=== PATIENT | female | born 1995 | race Caucasian/White ===

== ENCOUNTER 2016-03-15 18:05 | Emergency (ER) | payer BC ==
[~2016-03-15] VITALS: Ht 162.6 cm; Wt 76.6 kg
[2016-03-15] MEDS ORDERED: BENADRYL50 MG PO (21:03)
[2016-03-15] MEDS ORDERED: PREDNISONE10 MG PO (21:03)
[2016-03-15] MEDS ORDERED: PEPCID20 MG PO (21:03)
[2016-03-15] MEDS ORDERED: MOMETASONE FURO17 GM BOTH NARES (21:27)
[2016-03-15 21:28] VITALS: BP 102/68
[2016-03-15] MEDS ORDERED: RANITIDINE HCL150 M1 PO (21:28)
[2016-03-15] MEDS ORDERED: ZYRTEC10 M2 PO (21:28)
== END 2016-03-15 21:31 | disposition home or self-care (01) ==
LOC: EME 18:05
DX: T39.8X5A Adverse effect of other nonopioid analgesics and antipyretics, not elsewhere classified, initial encounter (principal); R20.0 Anesthesia of skin; R11.0 Nausea; R51 Headache
CPT/HCPCS: 99281; 99284; J7512

== ENCOUNTER 2016-09-15 22:51 | Emergency (ER) | payer BC ==
[~2016-09-15] VITALS: Ht 162.6 cm; Wt 75.1 kg
[~2016-09-15 22:51] MED LIST: BENADRYL50 MG PO; MOMETASONE FURO17 GM BOTH NARES; PEPCID20 MG PO; PREDNISONE10 MG PO; RANITIDINE HCL150 M1 PO; ZYRTEC10 M2 PO
[2016-09-16 00:20] LABS: HEMATOCRIT 38.3 % (36.0-46.0); MCH 31.5 PG (29.0-34.0); MCV 89.9 FL (83-99); RBC DIS.WIDTH-CV 11.5 % (11.8-14.6); RBC DIS.WIDTH-SD 37.1 % (39-53); RED BLOOD COUNT 4.26 M/uL (3.80-5.20); WHITE BLOOD COUNT 14.1 K/uL (4.1-10.2)
[2016-09-16 00:32] LABS: CHLORIDE 105 mEq/L (99-109); POTASSIUM 3.9 mEq/L (3.7-5.4); SODIUM 140 mEq/L (136-147)
[2016-09-16 00:34] LABS: GLUCOSE 95 mg/dL (70-99)
[2016-09-16 00:35] LABS: ANION GAP 12 MEQ/L (2-14)
[2016-09-16 00:36] LABS: TOTAL BILIRUBIN 0.6 mg/dL (0.0-1.0)
[2016-09-16 00:37] LABS: ALKALINE PHOSPHATASE 72 IU/L (3-129)
[2016-09-16 00:38] LABS: GFR ESTIMATE (CALCULATED) > 59 mL/min/
[2016-09-16 00:39] LABS: UREA NITROGEN (BUN) 15 mg/dL (9-23)
[2016-09-16 00:41] LABS: LIPASE 14 U/L (1.0-51.0)
[2016-09-16 00:48] LABS: QUANTITATIVE HCG < 4.0 MIU/ML
[2016-09-16 01:59] LABS: MEAN PLAT.VOLUME 11.7 uM^3 (9.5-12.4); PLAT.SUFFICIENCY ADEQUATE; PLATELET COUNT 241 K/uL (156-360)
[2016-09-16 03:21] LABS: ADD MIUA? YES; BILIRUBIN NEGATIVE; BLOOD NEGATIVE; COLOR YELLOW ((YELLOW)); GLUCOSE (STRIP) NEGATIVE; KETONES 80; LEUKOCYTES TRACE; NITRITE NEGATIVE; PROTEIN (STRIP) 30; SPECIFIC GRAVITY 1.021 (1.000-1.030); UROBILINOGEN 0.2 MG/DL (0.2-1.0)
[2016-09-16 03:39] LABS: BACTERIA 2+ /HPF; CASTS NONE SEEN /LPF; CRYSTALS NONE SEEN; EPITHELIAL CELLS 3+ /HPF; MUCUS 2+ /LPF; RED BLOOD CELLS NONE SEEN /HPF (0-5); UCUL ADDED? YES
[2016-09-16] MEDS ORDERED: KEFLEX500 MG PO (03:42)
[2016-09-16] MEDS ORDERED: ZOFRAN ODT4 MG PO (03:42)
[2016-09-16 04:34] VITALS: BP 101/56
== END 2016-09-16 04:35 | disposition home or self-care (01) ==
LOC: EME 22:51
PROVIDERS: Physician Assistant
DX: N12 Tubulo-interstitial nephritis, not specified as acute or chronic (principal); N20.0 Calculus of kidney; E86.0 Dehydration; R11.2 Nausea with vomiting, unspecified
CPT/HCPCS: 74176; 80053; 81003; 83690; 84702; 85027; 87086; 99281; 99285; J0696; J1200; J2270; J2405; J2765; J7030; J7050

== ENCOUNTER 2017-06-11 18:16 | Emergency (ER) | payer BC ==
[~2017-06-11] VITALS: Ht 162.6 cm; Wt 83.4 kg
[~2017-06-11 18:16] MED LIST changes: +KEFLEX500 MG PO; +ZOFRAN ODT4 MG PO
[2017-06-11 19:20] LABS: APPEARANCE CLEAR ((CLEAR)); BILIRUBIN NEGATIVE; BLOOD NEGATIVE; COLOR STRAW ((YELLOW)); GLUCOSE (STRIP) NEGATIVE; KETONES NEGATIVE; LEUKOCYTES NEGATIVE; NITRITE NEGATIVE; PROTEIN (STRIP) NEGATIVE; SPECIFIC GRAVITY 1.008 (1.000-1.030); UCUL ADDED? NO; UROBILINOGEN 0.2 MG/DL (0.2-1.0)
[2017-06-11 19:21] LABS: HEMATOCRIT 39.7 % (36.0-46.0); HEMOGLOBIN 14.2 G/DL (11.9-15.5); MCH 32.7 PG (29.0-34.0); MCHC 35.8 G/DL (30.0-36.0); MCV 91.5 FL (83-99); PLATELET COUNT 249 K/uL (156-360); RBC DIS.WIDTH-CV 11.7 % (11.8-14.6); RBC DIS.WIDTH-SD 39.2 % (39-53); RED BLOOD COUNT 4.34 M/uL (3.80-5.20); WHITE BLOOD COUNT 12.7 K/uL (4.1-10.2)
[2017-06-11 19:30] LABS: CHLORIDE 106 mEq/L (99-109); POTASSIUM 4.1 mEq/L (3.7-5.4); SODIUM 139 mEq/L (136-147)
[2017-06-11 19:32] LABS: GLUCOSE 87 mg/dL (70-99)
[2017-06-11 19:36] LABS: CREATININE 0.7 mg/dL (0.6-1.3); GFR ESTIMATE (CALCULATED) > 59 mL/min/
[2017-06-11 19:37] LABS: UREA NITROGEN (BUN) 10 mg/dL (9-23)
[2017-06-11 20:25] LABS: QUANTITATIVE HCG < 4.0 MIU/ML
[2017-06-11 20:26] LABS: TROP-I INTERPRETATION NEGATIVE; TROPONIN-I < 0.01 ng/mL (0.0-0.30)
[2017-06-11 21:35] VITALS: BP 123/70
== END 2017-06-11 21:35 | disposition home or self-care (01) ==
LOC: EME 18:16
DX: R07.89 Other chest pain (principal); R30.0 Dysuria; Z87.442 Personal history of urinary calculi
CPT/HCPCS: 71046; 80048; 81003; 84484; 84702; 85027; 93005; 99281; 99284; J1885